=== PATIENT | male | born 1945 | race Caucasian/White ===

== ENCOUNTER → 2016-12-11 | Outpatient (CLI) | payer MEDICARE, BC ==
[~2016-12-11] MED LIST: ASPI81TA2 PO; CALC-9 PO; CELE200C PO; EXEN2VIA SQ; INSU100I13 SQ; LEVO150T PO; LOSA50TA6 PO; METF500T4 PO; MULT-496 PO; OMEG300C PO; OMEP20CA9 PO; SIMV40TA3 PO
--- NOTE | 2016-12-11 12:56 | RAD ---
CT face without contrast History: Sinusitis, previous sinus surgery in August. Technique: Noncontrast CT of the face with attention to paranasal sinuses was performed. Axial, sagittal, and coronal reconstructions were obtained. One or more of the following individualized dose reduction techniques were utilized for the study: Automated exposure control Adjustment of mA and/or kV according to patient's size Use of iterative reconstruction technique. Findings: Extensive postsurgical changes are seen involving the right paranasal sinuses. There has been right antrectomy as well as ethmoidectomy and removal of the anterior wall of the right aspect of sphenoid sinus. There has also been a left antrectomy. There is minimal right and mild left maxillary sinus mucosal thickening. There is mild mucosal thickening of the right aspect of the sphenoid sinus. Left ethmoid air cells appear clear. Bilateral frontal sinuses are clear. No mucoperiosteal reaction is identified. There is no evidence of acute facial fracture. Bilateral orbits and orbital contents appear intact. Impression: 1. Postsurgical changes. 2. Mild paranasal sinus disease as described above.
== END | disposition home or self-care (01) ==
LOC: CT 11:15
PROVIDERS: ATTEND Otolaryngology
DX: J01.11 Acute recurrent frontal sinusitis (principal)
CPT/HCPCS: 70486

== ENCOUNTER → 2017-11-27 | Outpatient (CLI) | payer MEDICARE, BC ==
[~2017-11-27] MED LIST changes: +ASPI-630 PO; -ASPI81TA2 PO
--- NOTE | 2017-11-27 10:07 | RAD ---
Right knee, 3 views, 11/27/2017: History: Chronic knee pain AP standing views of both knees as well as lateral and tangential patellar views of the right were obtained as requested. There is severe narrowing of the medial compartment right knee joint with mild articular surface irregularity and sclerosis. There is mild marginal spurring at the knee joint and more extensive hypertrophic degenerative change at the right patellofemoral articulation. No fracture or dislocation is evident. No significant joint effusion is seen. There are mild degenerative changes involving the medial compartment of left knee joint. IMPRESSION: 1. 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 2. No acute bony abnormality is detected.
== END | disposition home or self-care (01) ==
LOC: DXRAD 09:33
PROVIDERS: ATTEND Orthopaedic Surgery Sports Medicine
DX: M25.561 Pain in right knee (principal); G89.29 Other chronic pain
CPT/HCPCS: 73562

== ENCOUNTER → 2019-10-14 | Outpatient (CLI) | payer MEDICARE, BC ==
[~2019-10-14] MED LIST changes: -LOSA50TA6 PO; +LOSA50TA86 PO; +METF500T16 PO; -METF500T4 PO; +OMEP20CA16 PO; -OMEP20CA9 PO; +SIMV40TA18 PO; -SIMV40TA3 PO
--- NOTE | 2019-10-14 11:12 | RAD ---
INDICATION: Osteoporosis screening. History of medication usage with elevated risk for osteopenia COMPARISON: 04/06/2013 TECHNIQUE: Bone densitometry was performed through the lumbar spine and proximal femur. FINDINGS: Lumbar Spine: BMD: 1.33 T-Score: 0.9 Increased by 2% from prior Proximal Femur: BMD: 1.22 T-Score: 1.3 Decreased by 6% from prior IMPRESSION: 1. Lumbar spine falls within the normal range. 2. Proximal femur falls within the normal range. Electronically signed by: Shamar Rosen MD (10/14/2019 11:08 AM) [facility] [place]
== END | disposition home or self-care (01) ==
LOC: DXRAD 09:55
PROVIDERS: ATTEND Physician Assistant Medical
DX: Z13.820 Encounter for screening for osteoporosis (principal); M85.88 Other specified disorders of bone density and structure, other site; Z79.899 Other long term (current) drug therapy
CPT/HCPCS: 77080